=== PATIENT | female | born 1955 | race Caucasian/White ===

== ENCOUNTER 2017-06-27 07:11 | Emergency (ER) | payer OTHER ==
[~2017-06-27] VITALS: Ht 167.6 cm; Wt 75.0 kg
[2017-06-27 07:13] VITALS: BP 177/72; PULSE 66; RESP 13; TEMP 97.9; O2SAT 97
[2017-06-27 07:27] VITALS: BP 191/90; PULSE 72; RESP 16; TEMP 97.9; O2SAT 95
[2017-06-27] MEDS ORDERED: LEVO.1 PO (07:29)
[2017-06-27] MEDS ORDERED: LIPI10TA PO (07:29)
[2017-06-27] MEDS ORDERED: ACYC800T PO (07:43)
[2017-06-27] MEDS ORDERED: NORC5TAB PO (07:43)
--- NOTE | 2017-06-27 07:44 | PD ---
HPI Chief Complaint: Skin Problem Time Seen by Provider: 07:29 Travel History International Travel<30 days: No Contact w/Intl Traveler<30days: No Traveled to known affect area: No History of Present Illness HPI The patient is a 61-year-old female who presents to the emergency department for painful rash in the perirectal area. The patient's rash has been present for 3 days, is painful, and worse with wiping. The patient's has been applying [id number] antibiotic ointment to the affected area without any alleviation of her symptoms. The patient is currently on vacation from [place], [place]. The patient denies any history of shingles or similar rash in the affected area. Symptoms are mild to moderate, there are no current alleviating or exacerbating factors. She does complain of pain with bowel movements secondary to the rash but denies any constipation. She denies any abdominal pain, nausea, or vomiting. PFSH Past Medical History High Cholesterol: Yes Thyroid Disease: Yes Past Surgical History Appendectomy: Yes Social History Alcohol Use: No Tobacco Use: No Substance Use: No Allergies-Medications (Allergen,Severity, Reaction): Coded Allergies: No Known Allergies (Unverified , 06/27/17) Reported Meds & Prescriptions Reported Meds & Active Scripts Active Reported Lipitor (Atorvastatin Calcium) 10 Mg Tab 10 Mg PO HS Synthroid (Levothyroxine Sodium) 100 Mcg Tab 100 Mcg PO DAILY Review of Systems Except as stated in HPI: all other systems reviewed are Neg General / Constitutional: No: Fever Gastrointestinal: No: Nausea, Vomiting, Abdominal Pain Genitourinary: No: Dysuria Musculoskeletal: No: Myalgias Skin: Positive Rash, Positive Other (as noted in the history of present illness ) Physical Exam Narrative GENERAL: Awake, alert, pleasant 61-year-old female who appears her stated age and is in no acute respiratory distress. SKIN: Focused skin assessment warm/dry. Patient has a vesicular rash with visible vesicles and S5 dermatome around the rectum. HEAD: Atraumatic. Normocephalic. EYES: No injection or drainage. NECK: Trachea midline. No JVD. CARDIOVASCULAR: Regular rate and rhythm. No murmur appreciated. RESPIRATORY: No accessory muscle use. Clear to auscultation. Breath sounds equal bilaterally. GASTROINTESTINAL: Abdomen soft, non-tender, nondistended. Rectal: The exam was performed in the presence of a female nurse. The patient has a circular rash in the rectal area with visible vesicles bilateral. MUSCULOSKELETAL: No obvious deformities. No clubbing. No cyanosis. No edema. NEUROLOGICAL: Awake and alert. No obvious cranial nerve deficits. Motor grossly within normal limits. Normal speech. PSYCHIATRIC: Appropriate mood and affect; insight and judgment normal. Data Data Last Documented VS Vital Signs Date Time Temp Pulse Resp B/P (MAP) Pulse Ox O2 Delivery O2 Flow Rate FiO2 06/27/17 07:27 97.9 72 16 191/90 (123) 95 Room Air MDM Medical Decision Making Medical Screen Exam Complete: Yes Emergency Medical Condition: Yes Medical Record Reviewed: Yes Differential Diagnosis Differential diagnosis includes genital herpes, shingles as 5 dermatome, vesicular rash, yeast infection, dermatitis, contact dermatitis. Narrative Course The patient has a painful vesicular rash in the S5 dermatomal, I am suspicious for shingles versus herpetic rash. The rash is painful, with visible vesicles, there is no underlying fluctuance. Patient will be treated with acyclovir and hydrocodone for pain. She is advised to follow-up with her primary physician and return if symptoms worsen or progress. Diagnosis Primary Impression: Vesicular rash Patient Instructions: General Instructions Additional Instructions: Vesicular rash suspicious for shingles in the past 5 dermatome. Acyclovir and [place] as directed. Avoid topical antibiotics. Follow-up with her primary physician. Return if symptoms worsen or progress. Med/Other Pt SpecificInfo: Prescription(s) given Scripts Hydrocodone-Acetaminophen ([place]) 5-325 mg Tab 1 TAB PO Q6H Y for PAIN, #15 TAB 0 Refills Prov: Gabriel Perea MD 06/27/17 Acyclovir (Acyclovir) 800 Mg Tab 800 MG PO 5 TIMES A DAY for Mgmt Viral Infection for 7 Days, TAB 0 Refills Prov: Gabriel Perea MD 06/27/17 Disposition: 01 DISCHARGE HOME Condition: Stable Gabriel Perea MD Jun 27, 2017 07:44
== END 2017-06-27 08:25 | disposition home or self-care (01) ==
LOC: NEPC 07:11
DX: R21 Rash and other nonspecific skin eruption (principal); E78.00 Pure hypercholesterolemia, unspecified; E07.9 Disorder of thyroid, unspecified
CPT/HCPCS: 99284